=== PATIENT | male | born 1965 | race Caucasian/White ===

== ENCOUNTER 2017-09-18 19:28 | Emergency (ER) | payer OTHER ==
--- NOTE | 2017-09-18 20:43 | ERPHSYRPT ---
- History of Present Illness Time Seen by Provider: 09/18/17 20:24 Source: patient Patient Subjective Stated Complaint: pt states on 09/16/17 he began having numbness to the left arm, states he was evaluated by the nurse on and wednesday by the doctor. reports there was a miscommunication and that he was supposed to be transported to this facility for evaluation yesterday. pt reports tingling to the left hand and foot, states when he raises his left arm his shoulder hurts. reports middle back pain for 2 days. reports a recent hospitilization to [facility] [place] for CHF. Triage Nursing Assessment: pt is aox3, ambulatory to cot with no difficulties, accompanied by [facility] staff member, pupils perrl, no facial droop noted, resps are easy and non labored, hand bander and cellophaner helper machine strong and equal, radial pulses strong and equal, heart sounds are strong and regular, minimal bilateral pedal edema, pedal pulses strong and equal bilat, skin is pink warm and dry. Physician History: CC: left sided numbness hx: 52 y/o patient from [facility]. He reports left sided numbness since (2 days ago). No weakness. Some back pain. No chest pain. He has no hx of heart disease nor stroke. He was given BP meds at [facility] a few months ago. No headache. No blurred vision. No dizziness. Left sided from ear to toes feels numb. Timing/Duration: day(s) (2) Baseline/Normal Cognition: alert oriented x 3 Current Cognition: alert oriented x 3 Allergies/Adverse Reactions: No Known Drug Allergies Allergy (Unverified 09/18/17 20:06) Home Medications: Amlodipine Besylate 10 mg [Norvasc 10 MG] 10 mg PO DAILY 09/18/17 [History] Carvedilol 6.25 mg [Coreg 6.25 MG] 6.25 mg PO BID 09/18/17 [History] Furosemide 80 mg [Lasix 80 mg] 80 mg PO DAILY 09/18/17 [History] Lisinopril 40 mg PO DAILY 09/18/17 [History] Hx Tetanus, Diphtheria Vaccination/Date Given: Yes Hx Influenza Vaccination/Date Given: No Hx Pneumococcal Vaccination/Date Given: No Immunizations Up to Date: Yes - Review of Systems Constitutional: No Fever, No Chills Eyes: No Vision Changes Ears, Nose, & Throat: No Symptoms Respiratory: No Cough, No Dyspnea Cardiac: No Chest Pain Abdominal/Gastrointestinal: No Abdominal Pain, No Nausea, No Vomiting Genitourinary Symptoms: No Symptoms Musculoskeletal: Back Pain, No Neck Pain Skin: No Rash Neurological: Parasthesia (left sided), No Focal Weakness, No Headache All Other Systems: Reviewed and Negative - Past Medical History Pertinent Past Medical History: Yes Cardiac History: Congestive Heart Failure, Hypertension Respiratory History: Sleep Apnea - Past Surgical History Past Surgical History: No - Social History Smoking Status: Former smoker Drug Use: methamphetamines Patient Lives Alone: No ([facility]) - Nursing Vital Signs Nursing Vital Signs: Initial Vital Signs Temperature 98.9 F 09/18/17 19:38 Pulse Rate 98 H 09/18/17 19:38 Respiratory Rate 20 09/18/17 19:38 Blood Pressure 177/89 09/18/17 19:38 O2 Sat by Pulse Oximetry 96 09/18/17 19:38 Pain Scale Pain Intensity 5 - Alex Coma Scale Best Eye Response ([place]): (4) open spontaneously Best Verbal Response (Alex): (5) oriented Best Motor Response ([place]): (6) obeys commands [place] Total: 15 - Physical Exam General Appearance: alert Eye Exam: bilateral eye: PERRL, EOMI Ears, Nose, Throat Exam: normal ENT inspection, moist mucous membranes Neck Exam: normal inspection, non-tender, supple Respiratory: normal breath sounds, lungs clear Cardiovascular: regular rate/rhythm, other (2+ femoral pulses bilateral) Gastrointestinal: soft, No tenderness, No distention Male Genitalia: normal genitalia Back Exam: normal inspection, No vertebral tenderness, No rash Extremity Exam: normal inspection, normal range of motion Mental Status: alert, oriented x 3, cooperative dietary clerk Exam: normal hearing, normal speech, PERRL Coordination/Gait: normal finger to nose Motor/Sensory: no motor deficit, no sensory deficit (some left subjective numbness), no pronator drift Skin Exam: normal color, warm, dry, No rash SpO2 Interpretation: normal SpO2: 96 Oxygen Delivery: Room Air - Course Nursing assessment & vital signs reviewed: Yes EKG Interpreted by Me: RATE (84), Sinus Rhythm, NORMAL AXIS, NORMAL INTERVALS ( QTc 421), Other (Poor R wave progression) - Radiology Exams cxr X-ray Interpretation: Reviewed by me, Negative - CT Exams head CT Interpretation: Discussed w/radiologist ([facility] Dr Lofton), Tele-radiologist Report (right thalamic lacunar, likely old, no bleed, no mass) Ordered Tests: Active Orders 24 hr Category Date Time Status Mail Deliverer STAT Care 09/18/17 20:30 Active Clean Catch Urine Specimen STAT Care 09/18/17 20:48 Active EKG-ER Only STAT Care 09/18/17 20:29 Active IV Insertion STAT Care 09/18/17 20:29 Active NPO (ED) STAT Care 09/18/17 20:29 Active CHEST 2 VIEWS (PA AND LAT) Stat Exams 09/18/17 20:29 Taken HEAD WITHOUT CONTRAST [CT] Stat Exams 09/18/17 20:29 Taken CBC W DIFF Stat Lab 09/18/17 20:45 Completed CMP Stat Lab 09/18/17 20:45 Completed PROTIME WITH INR Stat Lab 09/18/17 20:45 Completed PTT Stat Lab 09/18/17 20:45 Completed UA W/RFX UR CULTURE Stat Lab 09/18/17 20:48 Ordered Urine Triage Profile Stat Lab 09/18/17 20:48 Ordered Lab/Rad Data: Laboratory Result Diagrams 09/18/17 20:45 09/18/17 20:45 Laboratory Results 09/18/17 09/18/17 09/18/17 Range/Units 20:45 20:45 20:45 WBC 7.1 (4.0-10.5) K/mm3 RBC 4.99 (4.1-5.6) M/mm3 Hgb 13.8 (12.5-18.0) gm/dl Hct 41.7 L (42-50) % MCV 83.6 (78-100) fl MCH 27.7 (26-32) pg MCHC 33.1 (32-36) g/dl RDW 15.1 H (11.5-14.0) % Plt Count 239 (150-450) K/mm3 MPV 9.7 H (6-9.5) fl Gran % 64.1 (36.0-66.0) % Lymphocytes % 24.1 (24.0-44.0) % Monocytes % 8.0 (0.0-12.0) % Eosinophils % 3.4 (0.00-5.0) % Basophils % 0.4 (0.0-0.4) % Basophils # 0.03 (0-0.4) INR 1.02 (0.8-3.0) APTT 32.7 (24.1-36.1) SECONDS Sodium 139 (136-145) mEq/L Potassium 3.8 (3.5-5.1) mEq/L Chloride 102 (98-107) mEq/L Carbon Dioxide 30.1 (21-32) mEq/L Anion Gap 10.8 (5-15) MEQ/L BUN 13 (9-20) mg/dL Creatinine 1.21 (0.55-1.30) mg/dl Estimated GFR > 60 ML/MIN Glucose 209 H (70-110) MG/DL Calcium 9.0 (8.5-10.1) mg/dL Total Bilirubin 0.50 (0.2-1.0) mg/dL AST 14 L (15-37) U/L ALT 27 (12-78) U/L Alkaline Phosphatase 126 H (46-116) U/L Serum Total Protein 7.8 (6.4-8.2) gm/dL Albumin 3.7 (3.4-5.0) g/dL - Progress Progress Note: 09/18/17 21:58 BP improved. He has HTN and hyperglycemia. He appears stable to return to [facility], asa daily, and further care per medical staff. Counseled pt/family regarding: lab results, diagnosis, need for follow-up - Departure Time of Disposition: 21:58 Departure Disposition: [facility] Clinical Impression: Numbness on left side, High blood pressure, Hyperglycemia Condition: Stable Critical Care Time: No Instructions: Numbness/tingling, High Blood Pressure, Hyperglycemia -- Adult Additional Instructions: Diabetic diet. Watch blood sugar and BP. Take one aspirin daily. Further care per medical staff.
[2017-09-18 20:57] LABS: BASOPHIL % 0.4 % (0.0-0.4); Eosinophil % 3.4 % (0.00-5.0); Granulocytes % 64.1 % (36.0-66.0); Lymphocytes % 24.1 % (24.0-44.0); Mean Cell Volume 83.6 fl (78-100); Mean Corpuscular Hemoglobin 27.7 pg (26-32); Mean Platelet Volume 9.7 fl (6-9.5); Platelet Count 239 K/mm3 (150-450); Red Blood Count 4.99 M/mm3 (4.1-5.6); Red Cell Distribution Width 15.1 % (11.5-14.0); White Blood Count 7.1 K/mm3 (4.0-10.5)
[2017-09-18 21:16] LABS: ALBUMIN 3.7 g/dL (3.4-5.0); ALKALINE PHOSPHATASE 126 U/L (46-116); ANION GAP 10.8 MEQ/L (5-15); BLOOD UREA NITROGEN 13 mg/dL (9-20); CHLORIDE 102 mEq/L (98-107); Carbon Dioxide 30.1 mEq/L (21-32); Glucose 209 MG/DL (70-110); Potassium 3.8 mEq/L (3.5-5.1); SGOT/AST 14 U/L (15-37); SGPT/ALT 27 U/L (12-78); SODIUM 139 mEq/L (136-145); Total Protein 7.8 gm/dL (6.4-8.2)
[2017-09-18 21:18] LABS: INR 1.02 (0.8-3.0); PROTIME 11.4 SECONDS (8.83-12.87)
[2017-09-18 21:21] LABS: PTT 32.7 SECONDS (24.1-36.1)
[2017-09-18] MEDS ORDERED: BABY ASPIRIN 81 MG CHEW PO ONE (22:03)
[2017-09-18] MEDS ORDERED: BABY ASPIRIN 81 MG CHEW ONE (22:04)
[2017-09-18 22:11] LABS: ADD URINE CULTURE? NO (NO); Bilirubin NEGATIVE (NEGATIVE); Blood NEGATIVE Ery/ul (0-5); COMPLETE URINE MICROSCOPIC? NO; Collection Type CLEAN CATCH; Glucose 50 mg/dL (NEGATIVE); Leukocyte Esterase NEGATIVE (NEGATIVE)
[2017-09-18 22:19] VITALS: BP 155/85; PULSE 88; O2SAT 95
--- NOTE | 2017-09-19 09:32 | XRAY ---
Indication: Left arm numbness/tingling. Multiple contiguous axial images obtained through the head without contrast. Comparison: None Ventriculosulcal pattern appears symmetric. 6 mm remote lacunar infarct seen in the right thalamus. No acute intracranial hemorrhage, abnormal extra-axial fluid collection, or mass effect. Fourth ventricle is midline without hydrocephalus. Edward-white matter differentiation preserved. Bony calvarium intact. Visualized paranasal sinuses and mastoid air cells are clear. Impression: Remote right thalamic lacunar infarct. No acute intracranial abnormalities. Comment: Preliminary interpretation was made by [facility]. No discrepancy. CTDI 68.51
--- NOTE | 2017-09-19 09:34 | XRAY ---
Indication: CHF, sleep apnea, and left-sided numbness/tingling. Comparison: None PA/lateral chest hyperinflated and clear. Heart is not enlarged. Vascularity normal. Bony thorax intact with mild degenerative changes. Impression: Nonacute hyperinflated chest.
== END 2017-09-18 22:20 | disposition home or self-care (01) ==
LOC: ED 19:28
DX: R20.0 Anesthesia of skin (principal); I10 Essential (primary) hypertension; R73.9 Hyperglycemia, unspecified; Z79.899 Other long term (current) drug therapy
CPT/HCPCS: 36000; 36415; 70450; 71020; 80053; 80307; 81002; 85025; 85610; 85730; 93005; 93041; 99284; A9270-GY